=== PATIENT | female | born 1955 | race American Indian/Alaskan Native ===

== ENCOUNTER 2017-04-26 23:56 | Emergency (ER) | payer SELFPAY ==
[2017-04-27 01:01] LABS: Basophils % (Auto) 0.4 % (0.0-1.8); Eosinophils # (Auto) 0.1 K/mm3 (0.0-0.4); Eosinophils % (Auto) 1.6 % (0.0-4.3); Lymphocytes # (Auto) 1.8 K/mm3 (1.2-5.4); Lymphocytes % (Auto) 20.1 % (13.4-35.0); Mean Corpuscular HGB Conc 33 % (30-34); Mean Corpuscular Hemoglobin 27 pg (28-32); Mean Corpuscular Volume 80 fl (79-97); Monocytes # (Auto) 0.5 K/mm3 (0.0-0.8); Monocytes % (Auto) 5.1 % (0.0-7.3); Platelet Count 318 K/mm3 (140-440); Red Blood Count 3.75 M/mm3 (3.65-5.03)
[2017-04-27 01:18] LABS: Amorphous Crystals,Urine Few; Bacteria,Urine 1+ /HPF (Negative); Bilirubin,Urine NEG (Negative); Blood,Urine SM (Negative); Color,Urine Yellow (Yellow); Hyaline Casts,Urine 7 /LPF; Mucus,Urine FEW /HPF; Urobilinogen,Urine < 2.0 mg/dL (<2.0)
[2017-04-27 01:31] LABS: Albumin 2.9 g/dL (3.9-5); Calcium 10.1 mg/dL (8.4-10.2)
[2017-04-27] MEDS ORDERED: CATAPRES PO ONE (03:20)
[2017-04-27] MEDS ORDERED: PERCOCET 5/325 PO ONE (03:24)
[2017-04-27] MEDS ORDERED: MACROBID PO ONE (03:24)
[2017-04-27] MEDS ORDERED: TORADOL IV ONE (03:24)
[2017-04-27] MEDS ORDERED: K-DUR PO ONE ×2 (03:25→05:43)
--- NOTE | 2017-04-27 03:29 | Emergency Department Report ---
ED Back Pain/Injury HPI - General Chief Complaint: Back Pain/Injury Stated Complaint: BACK PAIN RADIATING TO ABD Time Seen by Provider: 04/27/17 03:15 Source: patient, family Limitations: No Limitations - History of Present Illness Initial Comments: 61 year female with a past medical history of hypertension and hypothyroidism presents to the hospital complains of right lower back pain radiating to the right lower quadrant of the abdomen morning. Pain is intermittent, shooting with a throbbing component. Pain is moderate in intensity. Pain is worse with palpation, moving, and lying supine. Patient denies dysuria, hematuria, fever, nausea, vomiting, melena, leg weakness or numbness. She presents with significantly elevated blood pressure because she has been out of her medications for the past 3 days. She denies headache, sob, or chest pain. - Related Data Previous Rx's Medication Instructions Recorded Last Taken Type HYDROcodone/APAP 5-325 [[place] 1 each PO Q6HR PRN #20 tablet 04/27/17 Unknown Rx 5/325] Ibuprofen [Motrin] 800 mg PO Q8HR PRN #30 tablet 04/27/17 Unknown Rx Lisinopril 20 mg PO DAILY #30 04/27/17 Unknown Rx Nitrofurantoin [place]/M-Cryst 100 mg PO Q12HR #10 capsule 04/27/17 Unknown Rx [Macrobid CAP] Potassium Chloride [K-Dur] 20 meq PO QDAY #3 tablet 04/27/17 Unknown Rx Allergies Allergy/AdvReac Type Severity Reaction Status Date / Time Penicillins Allergy Unknown Verified 04/27/17 00:25 ED Review of Systems ROS: Stated complaint: BACK PAIN RADIATING TO ABD Other details as noted in HPI Comment: All other systems reviewed and negative Other: Constitutional: No fevers chills Eyes: No eye pain visual changes ENT: No ear pain or throat pain Neck: Denies pain Respiratory: Denies cough wheezing shortness of breath Cardiovascular: Denies chest pain, palpitations, syncope GI: Denies abdominal pain, nausea, vomiting, diarrhea : Denies dysuria Musculoskeletal: As per HPI Skin: Denies rash, lesions, erythema Neurologic: Denies headache, numbness, weakness Psychiatric: Denies suicidal ideation, hallucinations ED Past Medical Hx - Past Medical History Previous Medical History?: Yes Hx Hypertension: Yes Additional medical history: Hypothyroid - Surgical History Past Surgical History?: Yes Additional Surgical History: Tubal ligation - Social History Smoking Status: Never Smoker Substance Use Type: None - Medications Home Medications: Home Medications Medication Instructions Recorded Confirmed Last Taken Type HYDROcodone/APAP 5-325 [[place] 1 each PO Q6HR PRN #20 tablet 04/27/17 Unknown Rx 5/325] Ibuprofen [Motrin] 800 mg PO Q8HR PRN #30 tablet 04/27/17 Unknown Rx Lisinopril 20 mg PO DAILY #30 04/27/17 Unknown Rx Nitrofurantoin [place]/M-Cryst 100 mg PO Q12HR #10 capsule 04/27/17 Unknown Rx [Macrobid CAP] Potassium Chloride [K-Dur] 20 meq PO QDAY #3 tablet 04/27/17 Unknown Rx ED Physical Exam - General Limitations: No Limitations - Other Other exam information: General: No limitations, patient is alert in no acute distress Head exam: Atraumatic, normocephalic Eyes exam: Normal appearance ENT: Moist mucous membrane, normal oropharynx Neck exam: Normal inspection, full range of motion, no meningismus nontender Respiratory exam: Clear to auscultation bilateral, no wheezes, rales, crackles Cardiovascular: Normal rate and rhythm, normal heart sounds Abdomen: Soft, nondistended, right lower quadrant tenderness, with normal bowel sounds, no rebound, or guarding Extremity: Full range of motion normal inspection no deformity Back: Normal Inspection, full range of motion, tenderness to the right lower back muscles Neurologic: Alert, oriented x3, cranial nerves intact, no motor or sensory deficit Psychiatric: normal affect, normal mood Skin: Warm, dry, intact ED Course Vital Signs 04/27/17 04/27/17 04/27/17 00:17 02:29 03:36 Temperature 98.3 F Pulse Rate 80 82 Respiratory 18 16 33 H Rate Blood Pressure 221/133 Blood Pressure 226/112 [Left] O2 Sat by Pulse 97 100 100 Oximetry 04/27/17 04/27/17 04/27/17 03:46 04:07 04:17 Temperature Pulse Rate 78 Respiratory 12 18 Rate Blood Pressure 203/110 209/160 Blood Pressure [Left] O2 Sat by Pulse 99 99 Oximetry 04/27/17 04/27/17 04/27/17 04:20 04:34 04:46 Temperature Pulse Rate 82 70 63 Respiratory 19 17 Rate Blood Pressure 209/160 209/160 205/108 Blood Pressure [Left] O2 Sat by Pulse 100 100 Oximetry - Reevaluation(s) Reevaluation #1: 04/27/17 05:58 Patient feeling better with ED treatment. Blood pressure has improved. ED Medical Decision Making - Lab Data Result diagrams: 04/27/17 00:44 04/27/17 00:44 Lab Results 04/27/17 04/27/17 04/27/17 Range/Units 00:37 00:44 00:44 WBC 9.0 (4.5-11.0) K/mm3 RBC 3.75 (3.65-5.03) M/mm3 Hgb 10.0 L (10.1-14.3) gm/dl Hct 30.0 L (30.3-42.9) % MCV 80 (79-97) fl MCH 27 L (28-32) pg MCHC 33 (30-34) % RDW 16.0 H (13.2-15.2) % Plt Count 318 (140-440) K/mm3 Lymph % (Auto) 20.1 (13.4-35.0) % [place] % (Auto) 5.1 (0.0-7.3) % Eos % (Auto) 1.6 (0.0-4.3) % Baso % (Auto) 0.4 (0.0-1.8) % Lymph # 1.8 (1.2-5.4) K/mm3 [place] # 0.5 (0.0-0.8) K/mm3 Eos # 0.1 (0.0-0.4) K/mm3 Baso # 0.0 (0.0-0.1) K/mm3 Seg Neutrophils % 72.8 H (40.0-70.0) % Seg Neutrophils # 6.5 (1.8-7.7) K/mm3 Sodium 133 L (137-145) mmol/L Potassium 2.8 L* (3.6-5.0) mmol/L Chloride 93.1 L (98-107) mmol/L Carbon Dioxide 24 (22-30) mmol/L Anion Gap 19 mmol/L BUN 17 (7-17) mg/dL Creatinine 1.0 (0.7-1.2) mg/dL Estimated GFR 57 ml/min BUN/Creatinine Ratio 17 % Glucose 129 H (65-100) mg/dL Calcium 10.1 (8.4-10.2) mg/dL Magnesium (1.7-2.3) mg/dL Total Bilirubin 0.50 (0.1-1.2) mg/dL AST 12 (5-40) units/L ALT 9 (7-56) units/L Alkaline Phosphatase 56 (35-129) units/L Total Protein 11.3 H (6.3-8.2) g/dL Albumin 2.9 L (3.9-5) g/dL Albumin/Globulin Ratio 0.3 % Lipase 20 (13-60) units/L Urine Color Yellow (Yellow) Urine Turbidity Hazy (Clear) Urine pH 5.0 (5.0-7.0) Ur Specific [place] 1.010 (1.003-1.030) Urine Protein 30 mg/dl (Negative) mg/dL Urine Glucose (UA) Neg (Negative) mg/dL Urine Ketones Neg (Negative) mg/dL Urine Blood Sm (Negative) Urine Nitrite Neg (Negative) Urine Bilirubin Neg (Negative) Urine Urobilinogen < 2.0 (<2.0) mg/dL Ur Leukocyte Esterase Lg (Negative) Urine WBC (Auto) 36.0 H (0.0-6.0) /HPF Urine RBC (Auto) 27.0 (0.0-6.0) /HPF U Epithel Cells (Auto) 10.0 (0-13.0) /HPF Urine Bacteria (Auto) 1+ (Negative) /HPF Amorphous Crystals Few Hyaline Casts 7 /LPF Urine Mucus Few /HPF 02/24/18 Range/Units 03:20 WBC (4.5-11.0) K/mm3 RBC (3.65-5.03) M/mm3 Hgb (10.1-14.3) gm/dl Hct (30.3-42.9) % MCV (79-97) fl MCH (28-32) pg MCHC (30-34) % RDW (13.2-15.2) % Plt Count (140-440) K/mm3 Lymph % (Auto) (13.4-35.0) % [place] % (Auto) (0.0-7.3) % Eos % (Auto) (0.0-4.3) % Baso % (Auto) (0.0-1.8) % Lymph # (1.2-5.4) K/mm3 [place] # (0.0-0.8) K/mm3 Eos # (0.0-0.4) K/mm3 Baso # (0.0-0.1) K/mm3 Seg Neutrophils % (40.0-70.0) % Seg Neutrophils # (1.8-7.7) K/mm3 Sodium (137-145) mmol/L Potassium (3.6-5.0) mmol/L Chloride (98-107) mmol/L Carbon Dioxide (22-30) mmol/L Anion Gap mmol/L BUN (7-17) mg/dL Creatinine (0.7-1.2) mg/dL Estimated GFR ml/min BUN/Creatinine Ratio % Glucose (65-100) mg/dL Calcium (8.4-10.2) mg/dL Magnesium 2.10 (1.7-2.3) mg/dL Total Bilirubin (0.1-1.2) mg/dL AST (5-40) units/L ALT (7-56) units/L Alkaline Phosphatase (35-129) units/L Total Protein (6.3-8.2) g/dL Albumin (3.9-5) g/dL Albumin/Globulin Ratio % Lipase (13-60) units/L Urine Color (Yellow) Urine Turbidity (Clear) Urine pH (5.0-7.0) Ur Specific [place] (1.003-1.030) Urine Protein (Negative) mg/dL Urine Glucose (UA) (Negative) mg/dL Urine Ketones (Negative) mg/dL Urine Blood (Negative) Urine Nitrite (Negative) Urine Bilirubin (Negative) Urine Urobilinogen (<2.0) mg/dL Ur Leukocyte Esterase (Negative) Urine WBC (Auto) (0.0-6.0) /HPF Urine RBC (Auto) (0.0-6.0) /HPF U Epithel Cells (Auto) (0-13.0) /HPF Urine Bacteria (Auto) (Negative) /HPF Amorphous Crystals Hyaline Casts /LPF Urine Mucus /HPF - EKG Data -: EKG Interpreted by Ia EKG shows normal: sinus rhythm, axis (qrs -4), QRS complexes (96), ST-T waves ( lat t iv, lvh, probable u wave) - Radiology Data Radiology results: report reviewed CT abdomen and pelvis with IV contrast: No bowel obstruction, colitis, enteritis. Appendix normal. Uterus ovaries unremarkable. No ascites or free air, abscess, or adenopathy. There is a recent fracture of the endplate of L1 without significant compression. There is no retropulsion or malalignment. There is an umbilical hernia containing fat only. - Medical Decision Making Right flank pain and lower back pain. Incidental L1 endplate fracture which is fairly recent. Patient also has UTI. She retreated symptomatically for pain and antibiotics for UTI. Blood pressure improves with clonidine. Her medications will be refilled. Patient also has hypokalemia. Received potassium chloride 60 mg by mouth in the ED. She was instructed to eat bananas and follow with PMD for further evaluation Patient states she is on lisinopril she is unsure if it is just lisinopril or makes with a diuretic. She was just be placed on lisinopril 20 mg once a day and by mouth potassium supplementation. She was instructed to eat bananas after potassium pills are complete and to follow-up with her primary care doctor for further treatment. - Differential Diagnosis hypertensive urgency, renal colic, UTI, dissection, muscle strain Critical Care Time: No Critical care attestation.: If time is entered above; I have spent that time in minutes in the direct care of this critically ill patient, excluding procedure time. ED Disposition Clinical Impression: L1 vertebral fracture, Back pain, UTI (urinary tract infection), Uncontrolled hypertension, Noncompliance with medication regimen, Hypokalemia Disposition: TO HOME OR SELFCARE Is pt being admited?: No Does the pt Need Aspirin: No Condition: Stable Instructions: Urinary Tract Infection in Women (ED), Thoracolumbar Fracture (ED ), Hypertension (ED), Hypokalemia (ED) Additional Instructions: Take the medications as prescribed. Once the potassium tablets are completely deep at least one banana per day. Follow-up with your doctor for repeat potassium testing and further evaluation of your symptoms. Return if symptoms worsen as indicated by your discharge instruction. Prescriptions: HYDROcodone/APAP 5-325 [[place] 5/325] 1 each PO Q6HR PRN #20 tablet PRN Reason: Pain Ibuprofen [Motrin] 800 mg PO Q8HR PRN #30 tablet PRN Reason: Pain Lisinopril 20 mg PO DAILY #30 Nitrofurantoin [place]/M-Cryst [Macrobid CAP] 100 mg PO Q12HR #10 capsule Potassium Chloride [K-Dur] 20 meq PO QDAY #3 tablet Referrals: PRIMARY CARE, [Referring] - 2-3 Days Time of Disposition: 05:59
--- NOTE | 2017-04-27 04:31 | Cat Scan Report ---
FINAL REPORT PROCEDURE: CT ANGIO ABDOMEN PELVIS TECHNIQUE: Computerized axial tomography of the abdomen and pelvis was performed after the IV injection of iodinated nonionic contrast. HISTORY: right flank pain , uti, elevated bp COMPARISON: No prior studies are available for comparison. FINDINGS: Visualized lower thorax: No significant abnormality. Liver: Normal size and attenuation. Spleen: Normal size and attenuation. Gallbladder and biliary system: Normal. Pancreas: Normal. Adrenals: Normal. Kidneys: Normal. GI tract: There is no bowel obstruction, colitis or enteritis. The appendix is normal.. Lymph nodes and mesentery: Normal. Vasculature: Normal. Bladder: Normal. Reproductive organs: Uterus and ovaries are unremarkable. Peritoneum: There is no ascites or free air, abscess or adenopathy.. Musculoskeletal structures: There is a recent fracture of the superior endplate of L1 without significant compression. There is no retropulsion or malalignment.. Other: There is an umbilical hernia containing fat only.. IMPRESSION: There is no bowel obstruction, colitis or enteritis. The appendix is normal.. Uterus and ovaries are unremarkable. There is no ascites or free air, abscess or adenopathy.. There is a recent fracture of the superior endplate of L1 without significant compression. There is no retropulsion or malalignment.. There is an umbilical hernia containing fat only..
[2017-04-27 06:14] VITALS: BP 162/86
== END 2017-04-27 06:16 | disposition home or self-care (01) ==
LOC: ED 23:56
DX: S32.019A Unspecified fracture of first lumbar vertebra, initial encounter for closed fracture (principal); N39.0 Urinary tract infection, site not specified; I10 Essential (primary) hypertension; E87.6 Hypokalemia; E03.9 Hypothyroidism, unspecified; Z98.51 Tubal ligation status; X58.XXXA Exposure to other specified factors, initial encounter; Y93.89 Activity, other specified; Y92.89 Other specified places as the place of occurrence of the external cause; Y99.8 Other external cause status
CPT/HCPCS: 36415; 74174; 80053; 81001; 83690; 83735; 85025; 87086; 93005; 93010; 96374; 99284; J1885; Q9967

== ENCOUNTER 2017-11-18 13:48 | Outpatient (CLI) | payer OTHER ==
--- NOTE | 2017-11-18 16:45 | Mammography Report ---
BILATERAL DIGITAL SCREENING MAMMOGRAM with CAD: 11/18/17 13:48:00 CLINICAL: Routine screening. COMPARISON:None available. FINDINGS: The breasts are heterogeneously dense, which may obscure small masses. No mass, architectural distortion or suspicious calcifications. IMPRESSION: No mammographic evidence of malignancy. BI-RADS CATEGORY: 1 - - Negative RECOMMENDATION: Routine mammographic screening in one year. COMMENT: Patient follow-up letters are generated by our [employer] application.
== END 2017-11-18 13:49 | disposition home or self-care (01) ==
LOC: MAMMO 13:48
DX: Z12.31 Encounter for screening mammogram for malignant neoplasm of breast (principal); I10 Essential (primary) hypertension
CPT/HCPCS: 77067

== ENCOUNTER 2021-01-11 09:06 | Outpatient (CLI) | payer OTHER ==
--- NOTE | 2021-01-12 10:24 | Mammography Report ---
DIGITAL SCREENING MAMMOGRAM WITH CAD, 01/11/2021 CLINICAL INFORMATION / INDICATION: Routine screening mammography. SCREENING MAMMOGRAM TECHNIQUE: Digital bilateral 2D mammography was obtained in the craniocaudal and mediolateral obliqu e projections. This examination was interpreted with the benefit of Computer-Aided Detection analysis . COMPARISON: 11/18/17. FINDINGS: Breast Density: There are scattered areas of fibroglandular density. No dominant mass, suspicious calcifications, or architectural distortion in either breast. There are mild benign breast arterial calcifications on the left. IMPRESSION: No mammographic evidence of malignancy. Follow up recommendation: Routine yearly BI-RADS Category 2: Benign. A "normal" or negative report should not discourage follow up or biopsy of a clinically significant f inding. A written summary of these findings will be mailed to the patient. The patient will be entered into a mammography reporting system which will generate a reminder letter for the patient's next appointmen t at the appropriate interval. The [employer] recommends yearly mammograms starting at age 40 and continuing as l kaylie as a woman is in good health. Breast MRI is recommended for women with an approximate 20-25% or greater lifetime risk of breast cancer, including women with a strong family history of breast or ova anuja cancer or who have been treated for Hodgkin's disease. Signer Name: Tez Kwan MD Signed: 01/12/2021 10:20 AM Workstation Name: [id number]
== END 2021-01-11 09:07 | disposition home or self-care (01) ==
LOC: MAMMO 09:06
PROVIDERS: ATTEND Internal Medicine
DX: Z12.31 Encounter for screening mammogram for malignant neoplasm of breast (principal); N64.89 Other specified disorders of breast
CPT/HCPCS: 77067